=== PATIENT | female | born 1980 | race Caucasian/White ===

== ENCOUNTER 2023-02-12 20:50 | Observation (INO) | payer OTHER ==
[~2023-02-12 20:50] MED LIST: Iopamidol-370 76% 500 ML MDV (1 ML CHARGE) ONE
[2023-02-12] MEDS ORDERED: Ondansetron PF 4 MG/2 ML Vial ONE (21:07)
[2023-02-12] MEDS ORDERED: LORazepam 2 MG/ML SYR.(CARPUJECT) ONE ×3 (21:17→23:51)
[2023-02-12 22:33] LABS: BHCG - Serum Negative (NEGATIVE); Pregs Control Background? CLEAR/WHITE (CLR/WHITE); Pregs Control Bar Appear? YES (CONTROL BAR)
[2023-02-12 22:43] LABS: #Eosinphils 0.1 thou/uL (0.0-0.7); #Monocytes 0.4 thou/uL (0.11-0.59); #Neutrophils 6.8 thou/uL (1.40-6.50); %Basophils 0.4 % (0.0-1.0); %Eosinophils 0.6 % (0.0-10.0); %Lymphocytes 11.7 % (21.0-51.0); %Monocytes 4.6 % (0.0-10.0); %Neutrophils 81.9 % (42.0-75.0); Hematocrit 37.1 % (36.0-47.0); Hemoglobin 12.4 g/dL (12.0-16.0); Mean Corpuscular HGB CONC 33.4 g/dL (32.0-36.0); Mean Corpuscular Volume 86.7 fl (78.0-98.0); Mean Platelet Volume 11.2 fL (7.4-10.4); Platelet Count 303 10x3/uL (130-400); RBC Distribution Width 12.2 % (11.5-14.5); Red Blood Cell (RBC) Count 4.28 mill/uL (4.20-5.40); White Blood Cell (WBC) Count 8.3 10x3/uL (4.8-10.8)
[2023-02-12 22:48] LABS: Acetaminophen Less than 10 mcg/mL (10.0-30.0); Alcohol Less than 10.0 mg/dL (Less than 10); Salicylate Less than 8.0 mg/dL (15.0-30.0)
[2023-02-12 22:53] LABS: Troponin I Less than 0.010 ng/mL (< 0.028)
[2023-02-12 23:08] LABS: ALT (SGPT) 17 U/L (8-55); AST (SGOT) 17 U/L (5-34); Albumin 4.3 g/dL (3.5-5.0); Alkaline Phosphatase 95 U/L (40-110); Anion Gap 16 mmol/L (10-20); BUN (Urea Nitrogen) 9 mg/dL (7.0-18.7); Bilirubin, Total Less than 0.2 mg/dL (0.2-1.2); CK (CPK) 194 U/L (29-168); Calc. Creatinine Clearance 0 mL/min (70-130); Calcium 8.9 mg/dL (7.8-10.44); Carbon Dioxide 23 mmol/L (22-29); Chloride 106 mmol/L (98-107); Estimated GFR 98; Globulin 2.9 g/dL (2.4-3.5); Glucose 105 mg/dL (70-105); Potassium 4.1 mmol/L (3.5-5.1); Protein, Total 7.2 g/dL (6.0-8.3); Sodium 141 mmol/L (136-145)
[2023-02-13] MEDS ORDERED: Ondansetron ODT 4 MG TAB PO PRN (00:35)
[2023-02-13] MEDS ORDERED: Ondansetron PF 4 MG/2 ML Vial IVP PRN (00:35)
[2023-02-13 02:01] VITALS: BMI 38.1
[2023-02-13] MEDS: Acetaminophen 325 MG TAB PO PRN ×2 (02:16→12:12)
[2023-02-13] MEDS: Lactated Ringer's 1,000 ML IV SCH ×2 (02:22→09:19)
[2023-02-13 08:24] LABS: INR-International Normal Ratio 1.1; PTT 29.6 sec (22.9-36.1); Prothrombin Time 14.1 sec (12.0-14.7)
[2023-02-13 09:20] LABS: Amphetamine Detected (NotDetected); Barbiturates Screen Not Detected (NotDetected); Benzodiazepine Screen Detected (NotDetected); Cocaine Metabolite Screen Detected (NotDetected); Methadone Not Detected (NotDetected); Methamphetamine Detected (NotDetected); Opiate Screen Not Detected (NotDetected); Oxycodone Screen Not Detected (NotDetected); Phencyclidine (PCP) Not Detected (NotDetected); THC/Cannabinoid Screen Not Detected (NotDetected); Tricyclic Screen Not Detected (NotDetected)
[2023-02-13 16:08] VITALS: BP 138/79; TEMP 98
[2023-02-16] MEDS ORDERED: FLU VACC QS2023-24(6MOS UP)/PF 60 MCG/0.5 ML SYRINGE IM ONE (09:00)
== END 2023-02-13 16:31 | disposition home or self-care (01) ==
LOC: ERS 20:50 → 2SE 02-13 00:02
PROVIDERS: ADMIT Family Medicine; ATTEND Family Medicine
DX: F15.129 Other stimulant abuse with intoxication, unspecified (principal); R74.8 Abnormal levels of other serum enzymes
CPT/HCPCS: 71045; 71275; 74018; 74177; 80306; 80307; 82550; 83605; 84484; 84703; 85610; 85730; 93005; 96361; G0378 ×2; J2060; 36415; 80053; 84443; 85025; J2405; J7120; Q9967

== ENCOUNTER 2023-06-26 01:28 | Emergency (ER) | payer MEDICAID, OTHER ==
[2023-06-26] MEDS ORDERED: Dicyclomine 20 MG TAB ONE (03:38)
[2023-06-26] MEDS ORDERED: Acetaminophen 325 MG TAB ONE (03:38)
[2023-06-26] MEDS ORDERED: Ibuprofen 200 MG TAB ONE (03:38)
[2023-06-26 04:05] LABS: Pregnancy Test - Urine (BHCG) Negative (Negative); Pregu Control Background? CLEAR/WHITE (CLR/WHITE); Pregu Control Bar Appear? YES (CONTROL BAR); Specific Gravity 1.012 (1.002-1.036)
[2023-06-26] MEDS ORDERED: Iopamidol-370 76% 500 ML MDV (1 ML CHARGE) ONE (09:00)
== END 2023-06-26 06:38 | disposition home or self-care (01) ==
LOC: ERS 01:28
DX: T18.5XXA Foreign body in anus and rectum, initial encounter (principal); E66.9 Obesity, unspecified; F15.10 Other stimulant abuse, uncomplicated; F17.210 Nicotine dependence, cigarettes, uncomplicated; F17.220 Nicotine dependence, chewing tobacco, uncomplicated
CPT/HCPCS: 74177; 81025; Q9967